=== PATIENT | male | born 1980 | race Two or more races ===

== ENCOUNTER 2022-07-23 14:35 | Emergency (ER) | payer MEDICARE, OTHER ==
[~2022-07-23] VITALS: Ht 175.3 cm; Wt 141.5 kg
--- NOTE | 2022-07-23 14:50 | NUR ---
[id number] OD ON FENTANYL, APNEIC UPON EMS ARRIVAL. GIVEN 8MG IN & 2MG IVP OF NARCAN & 4MG OF ZOFRAN. AAOX3 NOW +VOMITING. PLACED ON BED, AAOX4, BREATHING EVEN AND UNLABORED SATURATING AT 97%RA
[2022-07-23] MEDS ORDERED: IV NS 0.9% 1,000 ML BAG IV ONE (15:00)
[2022-07-23] MEDS ORDERED: ONDANSETRON HCL/PF 4 MG/2 ML VIAL IVP ONE (15:00)
--- NOTE | 2022-07-23 15:13 | NUR ---
PHLEB AT BEDSIDE FOR BLOOD DRAW
[2022-07-23] MEDS ORDERED: ONDANSETRON HCL/PF 4 MG/2 ML VIAL ONE (15:19)
[2022-07-23 15:37] LABS: BASOPHILS % (AUTO) 0.4 % (0.0-2.0); HEMATOCRIT 35 % (39-51); HEMOGLOBIN 10.9 g/dL (13.5-17.5); LYMPHOCYTES # (AUTO) 2.7 K/uL (0.8-4.8); LYMPHOCYTES % (AUTO) 19.6 % (20.0-44.0); MEAN CORPUSCULAR HGB CONC 31 g/dl (31.0-36.0); MEAN CORPUSCULAR VOLUME 78 fL (80-96); MONOCYTES # (AUTO) 0.6 K/uL (0.1-1.30); MONOCYTES % (AUTO) 4.5 % (2.0-12.0); NEUTROPHILS # (AUTO) 10.2 K/uL (1.8-8.9); NEUTROPHILS % (AUTO) 72.5 % (43.0-81.0); PLATELET COUNT (AUTO) 308 K/uL (150-450); RED BLOOD CELL COUNT(AUTO) 4.52 MIL/uL (4.5-6.0)
[2022-07-23 16:01] LABS: ALCOHOL, BLOOD < 3 mg/dL (0-0)
[2022-07-23 16:04] LABS: CALCIUM, SERUM 8.3 mg/dL (8.5-10.1); CREATININE 1.2 mg/dL (0.6-1.3); POTASSIUM 3.5 mmol/L (3.5-5.1)
[2022-07-23 16:09] LABS: ALBUMIN 3.1 g/dL (3.4-5.0); BILIRUBIN,DIRECT 0.1 mg/dL (0.0-0.2); BILIRUBIN,TOTAL 0.3 mg/dL (0.2-1.0)
--- NOTE | 2022-07-23 19:07 | NUR ---
URINE SAMPLE COLLECTED AND SENT TO LAB
[2022-07-23] MEDS ORDERED: NALO4SPR BNOSTRILS (21:55)
[2022-07-24 03:57] VITALS: BP 135/78
--- NOTE | 2022-07-24 03:57 | NUR ---
Patient discharged to home in stable condition. Written and verbal after care instructions given. Patient verbalizes understanding of instruction.
== END 2022-07-24 03:58 | disposition home or self-care (01) ==
LOC: ER 17:06
DX: T40.411A Poisoning by fentanyl or fentanyl analogs, accidental (unintentional), initial encounter (principal); R11.10 Vomiting, unspecified; Z60.2 Problems related to living alone; Y92.89 Other specified places as the place of occurrence of the external cause
CPT/HCPCS: 99283; 96374; 96361; 85025; 80048; 83690; 80076; 36415; 80143; 80320; 80307; J2405; J7030; G0480